=== PATIENT | female | born 2005 | race Caucasian/White ===

== ENCOUNTER 2023-01-10 15:19 | Emergency (ER) | payer MEDICAID ==
[~2023-01-10] VITALS: Ht 170.2 cm; Wt 100.0 kg
[2023-01-10 16:26] VITALS: BP 132/94
== END 2023-01-11 02:37 | disposition left against medical advice (07) ==
LOC: EDBD 15:19 → ER 15:19
DX: T78.49XA Other allergy, initial encounter (principal); R94.31 Abnormal electrocardiogram [ECG] [EKG]; Z53.21 Procedure and treatment not carried out due to patient leaving prior to being seen by health care provider; X58.XXXA Exposure to other specified factors, initial encounter
CPT/HCPCS: 93005

== ENCOUNTER 2023-08-21 00:29 | Emergency (ER) | payer MEDICAID ==
[~2023-08-21] VITALS: Ht 175.3 cm; Wt 97.7 kg
[2023-08-21 01:28] VITALS: BP 118/72; PULSE 74; RESP 18; TEMP 98; O2SAT 99
[2023-08-21] MEDS ORDERED: AMOX875T4 PO (01:59)
== END 2023-08-21 02:06 | disposition home or self-care (01) ==
LOC: ER 00:29
DX: S71.152A Open bite, left thigh, initial encounter (principal); S80.812A Abrasion, left lower leg, initial encounter; W55.01XA Bitten by cat, initial encounter; Y93.89 Activity, other specified; Y92.89 Other specified places as the place of occurrence of the external cause; Y99.8 Other external cause status

== ENCOUNTER 2023-12-23 03:53 | Emergency (ER) | payer MEDICAID ==
[~2023-12-23] VITALS: Ht 177.8 cm; Wt 109.0 kg
[~2023-12-23 03:53] MED LIST: AMOX875T4 PO
[2023-12-23 04:11] VITALS: BP 122/83; PULSE 112; RESP 18; TEMP 99; O2SAT 98
[2023-12-23 04:32] LABS: Urine Epithelial Cast None Seen /hpf (<5); Urine WBC None Seen /hpf (0 - 5)
[2023-12-23] MEDS ORDERED: MAALOX PLUS or MAALOX 30 ML PO ONE (04:45)
[2023-12-23 04:49] LABS: Urine Amorphous Crystal MOD /hpf (None Seen); Urine Bacteria NONE SEEN /hpf (None Seen); Urine Blood Negative /uL (Negative); Urine Clarity CLOUDY (Clear); Urine Color Yellow (Yellow); Urine Mucus FEW (None Seen); Urine Protein, UAD TRACE (Negative); Urine Specific Gravity 1.031 (1.001-1.035); Urine Urobilinogen Normal (Negative); Urine pH 5.5 (5.0-8.0)
[2023-12-23] MEDS ORDERED: OMEP-434 PO (04:49)
[2023-12-23 04:52] LABS: Basophils # (auto) 0 10 ^3/uL (0-0.2); Eosinophils # (auto) 0.3 10 ^3/uL (0-0.8); Lymphocytes # (auto) 0.6 10 ^3/uL (0.4-5.4)
[2023-12-23 04:55] LABS: Basophils % (auto) 0.4 % (0.0-2.0); Eosinophils % (auto) 4.1 % (0.0-7.0); Hematocrit 42.3 % (36.0-46.0); Hemoglobin 13.5 g/dL (12.2-16.2); Mean Corpuscular Hemoglobin 25.7 pg (28.0-32.0); Mean Corpuscular Hgb Conc. 31.9 g/dL (32.0-36.0); Mean Corpuscular Volume 80.6 fL (80.0-100.0); Monocytes # (auto) 0.5 10 ^3/uL (0-1.3); Monocytes % (auto) 6.1 % (0.0-12.0); Neutrophils # (auto) 6.1 10 ^3/uL (1.6-8.6); Neutrophils % (auto) 81.4 % (37.0-80.0); Red Blood Cells 5.25 10^6/uL (4.0-5.20); Red Cell Distribution Width 14.8 % (11.8-14.3); White Blood Cell 7.5 10^3/uL (4.4-10.8)
[2023-12-23 05:07] LABS: Alanine Aminotransferase 10 U/L (7-40); Albumin 4.8 g/dL (3.2-4.8); Alkaline Phosphatase 65 U/L (46-116); Anion Gap 7 (5-15); Aspartate Aminotransferase 12 U/L (13-40); BUN/Creatinine Ratio 8.9 (10.0-20.0); Bilirubin, Total 1.6 mg/dL (0.2-1.0); Blood Urea Nitrogen 8 mg/dL (9-23); Calcium 9.5 mg/dL (8.7-10.4); Carbon Dioxide 25 mmol/L (20-30); Chloride 108 mmol/L (98-107); Glucose 111 mg/dL (74-106); Lipase 30 U/L (12-53); Potassium 4.1 mmol/L (3.5-5.1); Sodium 140 mmol/L (136-145); Total Protein 8.6 g/dL (5.7-8.2)
[2023-12-23] MEDS ORDERED: DONNATAL 5ml ORAL Elix (BELLADONNA ALK-PHENOBARB) PO ONE (05:15)
[2023-12-23] MEDS ORDERED: LIDOCAINE VISCOUS 2% 15ML UD PO ONE (05:15)
[2023-12-23] MEDS ORDERED: CIPR500T4 PO (05:22)
[2023-12-23] MEDS ORDERED: ZOFR4T PO (05:22)
== END 2023-12-23 05:34 | disposition home or self-care (01) ==
LOC: ER 03:53
DX: K52.9 Noninfective gastroenteritis and colitis, unspecified (principal); K29.70 Gastritis, unspecified, without bleeding; K21.9 Gastro-esophageal reflux disease without esophagitis; Z79.2 Long term (current) use of antibiotics; Z79.899 Other long term (current) drug therapy; Z91.018 Allergy to other foods
CPT/HCPCS: 36415; 80053; 81001; 81025; 83690; 85025

== ENCOUNTER 2025-03-11 02:03 | Emergency (ER) | payer MEDICAID ==
[~2025-03-11] VITALS: Ht 177.8 cm; Wt 108.9 kg
[~2025-03-11 02:03] MED LIST changes: +CIPR500T4 PO; +OMEP-434 PO; +ZOFR4T PO
--- NOTE | 2025-03-11 02:07 | ED.PDOC ---
Back pain HPI HPI Comments 19-YEAR-OLD FEMALE PRESENTS TO THE ED WITH LOWER BACK PAIN. 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 SHE STATES SHE WAS GIVEN AN INJECTION IN THE MUSCLE FOR PAIN REPORTS NO IMAGING AND THEN SHE WAS DISCHARGED. SHE STATES OVER THE PAST 24 HOURS THE PAIN HAS INCREASED ACROSS LOW MID BACK NONRADIATING DOWN THE LEGS OR INTO THE GLUTES STATES PAIN IS 9/10 SHARP IN NATURE. PATIENT DENIES SADDLE ANESTHESIA, LOSS OF BOWEL BLADDER CONTROL, URINARY SYMPTOMS, NUMBNESS OR WEAKNESS. Time Seen by MD: 02:05 Reviewed Notes: Nurses Notes, Medications, Allergies Allergies: Uncoded Allergies: WALNUTS (Allergy, Unknown, 01/10/23) Home Meds Active Scripts Methylprednisolone (Medrol Dosepak) 4 Mg Renaldo, 4 MG PO UD for 6 Days, #21 TAB UAD Prov:MAGDIEL MOLINA 03/11/25 Tizanidine Hydrochloride (Tizanidine Hcl) 4 Mg Tab, 4 MG PO HS PRN for 4 Days, #4 TAB Prov:MAGDIEL MOLINA 03/11/25 Ciprofloxacin Hcl (Ciprofloxacin Hcl) 500 Mg Tab, 1 TAB PO BID for 7 Days, #14 TAB 0 Refills Prov:NATALY ORDONEZ 12/23/23 Ondansetron Odt 4MG Tab (ZOFRAN PO) 4 Mg Tb, 4 MG PO Q8HP, #14 TAB 0 Refills ODT TAB-DISSOLVE IN MOUTH, THEN SWALLOW Prov:NATALY ORDONEZ 12/23/23 Omeprazole Magnesium (Omeprazole) 20 Mg Tab, 20 MG PO DAILY, #30 TAB 0 Refills Prov:NATALY ORDONEZ 12/23/23 Amoxicillin & Pot Clavulanate (Amoxicillin/Potassium Cla) 875 Mg Tab, 1 TAB PO BID for 10 Days, #20 TAB 0 Refills Prov:JARRETT BRADSHAW 08/21/23 Information Source: Patient Past Medical History PAST MEDICAL HISTORY: GERD Surgical History: Denies all surgeries SOCIAL MEDIA COMMUNITY MANAGER History: No Pertinent SOCIAL MEDIA COMMUNITY MANAGER History Family History Family History: Unknown Social History Smoker: Non-Smoker Alcohol: Denies ETOH Use Drugs: Denies Drug Use Lives In: Home Constitutional: denies: chills, diaphoresis, fatigue, fever, malaise, sweats, weakness, others EENTM: denies: blurred vision, double vision, ear bleeding, ear discharge, ear drainage, ear pain, ear ringing, eye pain, eye redness, hearing loss, mouth pain, mouth swelling, nasal discharge, nose bleeding, nose congestion, nose pain, photophobia, tearing, throat pain, throat swelling, voice changes, others Respiratory: denies: cough, hemoptysis, orthopnea, SOB at rest, shortness of breath, SOB with excertion, stridor, wheezing, others Cardiovascular: denies: chest pain, dizzy spells, diaphoresis, Dyspnea on exertion, edema, irregular heart beat, left arm pain, lightheadedness, palpita tions, PND, syncope, others Gastrointestinal: denies: abdomen distended, abdominal pain, blood streaked uri wels, constipated, diarrhea, dysphagia, difficulty swallowing, hematemesis, melena, nausea, poor appetite, poor fluid intake, rectal bleeding, rectal pain, vomiting, others Genitourinary: denies: abnormal vagina bleeding, burning, dyspareunia, dysuria, flank pain, frequency, hematuria, incontinence, pain, , vagina discharge, urgency, others Neurological: denies: dizziness, fainting, headache, left sided numbness, left sided weakness, numbness, paresthesia, pre-existing deficit, right sided numbness, right sided weakness, seizure, speech problems, tingling, tremors, weakness, others Musculoskeletal: reports: back pain; denies: gout, joint pain, joint swelling, muscle pain, muscle stiffness, neck pain, others Integumetry: denies: bruises, change in color, change in hair/nails, dryness, laceration, lesions, lumps, rash, wounds, others Allergic/Immunocompromised: denies: Difficulty Healing, Frequent Infections, Hives, Itching, others Hematologic/Lymphatic: denies: anemia, blood clots, easy bleeding, easy bruising, swollen glands, others Endocrine: denies: excessive hunger, excessive sweating, excessive thirst, excessive urination, flushing, intolerance to cold, intolerance to heat, unexplained weight gain, unexplained weight loss, others Psychiatric: denies: anxiety, bipolar disorder, depression, hopeless, panic d isorder, schizophrenia, sleepless, suicidal, others Physical Exam General Appearance: No Apparent Distress, Normal HEENT: Pharynx Normal Neck: Full Range of Motion, Non-Tender Respiratory: Lungs Clear, No Respiratory Distress, Normal Breath Sounds Cardiovascular: No Edema, No JVD, No Murmur, No Gallop, Normal Peripheral Pulses, Regular Rate/Rhythm Breast Exam: Deferred Gastrointestinal: No Organomegaly, Non Tender, No Pulsatile Mass, Normal Bowel Sounds, Soft Genitalia: Deferred Pelvic: Deferred Rectal: Deferred Extremities: Normal capillary refill, Normal inspection, Normal range of motion, Non-tender, No pedal edema Musculoskeletal : Location: Bilateral Extremity Location: Back (MODERATE TENDERNESS PALPATED OVER L1 THROUGH L5 PARASPINAL MUSCLES BILATERAL NO NOTED CREPITUS OR STEP-OFFS. NEGATIVE STRAIGHT LEG RAISE BILATERAL. STRENGTH SENSORY MOTION INTACT. POSITIVE PEDAL PULSES.) Apperance: Normal Neurologic: Alert, learning center coordinator II-XII nml as Tested, No Motor Deficits, Normal Affect, Normal Mood, No Sensory Deficits Cerebellar Function: Normal Reflexes: Normal Skin: Dry, Normal Color, Warm Lymphatic: No Adenopathy Was a procedure done? Was a procedure done?: No Back Pain Differential Dx Differential Diagnosis: Fracture, Musculoskeletal Pain, Strain X-Ray, Labs, Meds, VS Vital Signs Date Time Temp Pulse Resp B/P (MAP) Pulse Ox O2 Delivery O2 Flow Rate FiO2 03/11/25 03:01 98.5 72 20 118/72 (87) 99 98.5 03/11/25 03:01 72 20 99 Room Air 03/11/25 02:09 98.5 94 24 137/95 (109) 100 98.5 Current Medications Medications (Trade) Dose Ordered Sig/Fredi Route Start Time Stop Time Status Last Admin Ketorolac Tromethamine (Toradol Injection) 60 mg ONCE ONCE IM 03/11/25 02:15 03/11/25 02:16 DC 03/11/25 02:45 Dexamethasone Sodium Phosphate (Decadron Injection) 10 mg ONCE ONCE IM 03/11/25 02:15 03/11/25 02:16 DC 03/11/25 02:45 X-Ray, Labs, Meds, VS Comment LUMBAR SPINE X-RAY SHOWS NO ACUTE FRACTURES OSSEOUS LESIONS OR SUBLUXATIONS. LIKELY LUMBAR STRAIN. SCRIPT MEDROL DOSEPAK AND TIZANIDINE ADVISED TO TAKE MEDICATIONS PRESCRIBED SIDE EFFECTS DISCUSSED. ALTERNATE BETWEEN ICE AND HEAT. FOLLOW UP WITH YOUR PCP IN 1-2 DAYS SOONER NECESSARY FOR RE- EVALUATION. ER RETURN PRECAUTIONS GIVEN PATIENT INDICATES UNDERSTANDING AND AGREES WITH DISCHARGE PLAN OF CARE. Time of 1ST Reevaluation: 02:07 Reevaluation 1ST: Unchanged Time of 2ND Reevaluation: 03:03 Reevaluation 2ND: Improved Patient Education/Counseling: Diagnosis, Treatment, Prognosis, Need For Follow Up Family Education/Counseling: No Family Present Departure 1 Departure Time of Disposition: 03:04 Impression: Primary Impression: Lumbar sprain Qualified Codes: S33.5XXA - Sprain of ligaments of lumbar spine, initial encounter Disposition: HOME / SELF CARE / HOMELESS Condition: Stable e-Prescriptions Methylprednisolone (Medrol Dosepak) 4 Mg Renaldo 4 MG PO UD for 6 Days, #21 TAB UAD Prov: MAGDIEL MOLINA 03/11/25 Tizanidine Hydrochloride (Tizanidine Hcl) 4 Mg Tab 4 MG PO HS PRN for 4 Days, #4 TAB Prov: MAGDIEL MOLINA 03/11/25 Discharged With: Self Critical Care Note Critical Care Time?: No Stability Stability form required: MAGDIEL Fitch Mar 11, 2025 02:07
--- NOTE | 2025-03-11 02:40 | DVH ---
INDICATION: LOW MID BACK PAIN COMPARISON: None TECHNIQUE: 2 views of the lumbar spine were obtained. FINDINGS: The lumbar vertebral alignment is normal. The intervertebral disc spaces are well-maintained. No significant facet arthropathy is noted. No acute fracture, vertebral compression deformity or aggressive osseous lesions. The paravertebral soft tissues are grossly unremarkable. IMPRESSION: 1. No acute fracture.
[2025-03-11] MEDS: DexAMETHasone SOD PHOS 10MG/1ML VIAL INJ IM ONE (02:45)
[2025-03-11] MEDS: KETOROLAC TROMETH 60MG/2ML VIAL IM ONE (02:45)
[2025-03-11 03:01] VITALS: BP 118/72; PULSE 72; RESP 20; TEMP 98.5; O2SAT 99
[2025-03-11] MEDS ORDERED: TIZA-142 PO (03:05)
[2025-03-11] MEDS ORDERED: METH4PAK PO (03:05)
== END 2025-03-11 03:09 | disposition home or self-care (01) ==
LOC: ER 02:03
DX: S33.5XXA Sprain of ligaments of lumbar spine, initial encounter (principal); Z79.899 Other long term (current) drug therapy; X58.XXXA Exposure to other specified factors, initial encounter; Y93.89 Activity, other specified; Y92.89 Other specified places as the place of occurrence of the external cause; Y99.8 Other external cause status
CPT/HCPCS: 72100; 96372; 99284; J1100; J1885

== ENCOUNTER 2025-06-07 17:20 | Emergency (ER) | payer MEDICAID ==
[~2025-06-07] VITALS: Ht 177.8 cm; Wt 112.5 kg
[2025-06-07 17:25] VITALS: BP 114/79; RESP 16; TEMP 98; O2SAT 96
[2025-06-07 17:26] VITALS: PULSE 91
[2025-06-07] MEDS ORDERED: DICYCLOMINE HCL (10MG/ML) 2 ML AMPULE IM ONE (17:45)
[2025-06-07] MEDS ORDERED: LIDOCAINE VISCOUS 2% 15ML UD PO ONE (17:45)
[2025-06-07] MEDS ORDERED: DONNATAL 5ml ORAL Elix (BELLADONNA ALK-PHENOBARB) PO ONE (17:45)
[2025-06-07] MEDS ORDERED: MAALOX PLUS or MAALOX 30 ML PO ONE (17:45)
[2025-06-07] MEDS ORDERED: ONDANSETRON ODT 4 MG TAB PO ONE (17:45)
[2025-06-07 17:52] LABS: Hematocrit 39.9 % (36.0-46.0); Hemoglobin 13.0 g/dL (12.2-16.2); Mean Corpuscular Hemoglobin 25.2 pg (28.0-32.0); Mean Corpuscular Volume 77.6 fL (80.0-100.0); Nucleated Red Blood Cells % 0.1 %
[2025-06-07 18:14] LABS: Albumin 3.9 g/dL (3.2-4.8); Alkaline Phosphatase 50 U/L (46-116); Anion Gap 7 (5-15); BUN/Creatinine Ratio 13.4 (10.0-20.0); Blood Urea Nitrogen 11 mg/dL (9-23); Calcium 8.8 mg/dL (8.7-10.4); Carbon Dioxide 25 mmol/L (20-31); Glucose 98 mg/dL (74-106); Lipase 23 U/L (12-53); Potassium 4.3 mmol/L (3.5-5.1); Sodium 142 mmol/L (136-145); Total Protein 6.1 g/dL (5.7-8.2)
[2025-06-07 18:15] LABS: Bilirubin, Total 0.7 mg/dL (0.2-1.0)
[2025-06-07 18:17] LABS: Alanine Aminotransferase 9 U/L (7-40); Chloride 110 mmol/L (98-107)
[2025-06-07 18:23] LABS: Urine Protein, UAD TRACE (Negative)
--- NOTE | 2025-06-07 18:42 | DVH ---
CHEST RADIOGRAPH Indication: cp Technique: Single frontal view of the chest was obtained Comparison: None FINDINGS: Lines and Tubes: None Lungs: No focal consolidation. Pleura: No effusion. No pneumothorax. Cardiomediastinal contours: Unremarkable Bones: No acute osseous abnormality. IMPRESSION: 1. No acute cardiopulmonary disease.
--- NOTE | 2025-06-07 18:54 | ECG ---
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
--- NOTE | 2025-06-07 20:30 | ED.PDOC ---
History of Present Illness HPI Comments 19-year-old female with a history of asthma brought in by family complaining of lower chest and epigastric pain for the past month intermittently, worse over the past 4 days. Patient states she had onset today of the pain while lying in bed, described as heaviness and tightness, retrosternal, associated with shortness of breath and 7/10 in severity. Patient also reports associated nausea but no vomiting. Denies fever, diarrhea, constipation or dysuria. Chief Complaint: Chest Pain Time Seen by MD: 17:22 Allergies: Coded Allergies: No Known Drug Allergy (Verified Allergy, Unknown, 06/07/25) Uncoded Allergies: WALNUTS (Allergy, Unknown, 01/10/23) Home Meds Active Scripts Ciprofloxacin Hcl (Ciprofloxacin Hcl) 500 Mg Tab, 1 TAB PO BID for 7 Days, #14 TAB 0 Refills Prov:NATALY ORDONEZ 12/23/23 Ondansetron Odt 4MG Tab (ZOFRAN PO) 4 Mg Tb, 4 MG PO Q8HP, #14 TAB 0 Refills ODT TAB-DISSOLVE IN MOUTH, THEN SWALLOW Prov:NATALY ORDONEZ 12/23/23 Omeprazole Magnesium (Omeprazole) 20 Mg Tab, 20 MG PO DAILY, #30 TAB 0 Refills Prov:NATALY ORDONEZ 12/23/23 Amoxicillin & Pot Clavulanate (Amoxicillin/Potassium Cla) 875 Mg Tab, 1 TAB PO B ID for 10 Days, #20 TAB 0 Refills Prov:JARRETT BRADSHAW 08/21/23 Mode of Arrival: Ambulatory Past Medical History PAST MEDICAL HISTORY: Asthma, GERD Surgical History: Denies all surgeries PHLEBOTOMIST LAB ASSISTANT History: No Pertinent PHLEBOTOMIST LAB ASSISTANT History Family History Family History: Reviewed,noncontributory to illness Social History Smoker: Non-Smoker Alcohol: Denies ETOH Use Drugs: Denies Drug Use Lives In: Home All Other Systems: Reviewed and Negative (Comprehensive systems review obtained and negative except for what is stated in the HPI.) Physical Exam General Appearance: Mild Distress, Obese HEENT: Other (Pupils and face symmetric. Moist mucous membranes.) Neck: Full Range of Motion, Normal Inspection Respiratory: Lungs Clear, No Accessory Muscle Use, No Respiratory Distress, Normal Breath Sounds, Other (Palpation of the lower sternal area reproduces the pain) Cardiovascular: No Edema, No JVD, Regular Rate/Rhythm Breast Exam: Deferred Gastrointestinal: Non Tender, Soft Genitalia: Deferred Pelvic: Deferred Rectal: Deferred Extremities: Normal inspection, Normal range of motion, Non-tender, No pedal edema Neurologic: Alert (Oriented x4), Normal Affect, Other (Anxious. Ambulatory.) Cerebellar Function: NOT DONE Reflexes: NOT DONE Skin: Dry, Normal Color, Warm Lymphatic: NOT DONE Was a procedure done? Was a procedure done?: No EKG EKG : Comments Sinus rhythm, rate 91, normal intervals, normal axis, normal QRS, no ST/T changes. Differential Dx Considerations may include: Acid reflux, esophagitis, esophageal spasm, gastritis, enteritis, ACS, AK, arrhythmia, among others X-Ray, Labs, Meds, VS Vital Signs Date Time Temp Pulse Resp B/P (MAP) Pulse Ox O2 Delivery O2 Flow Rate FiO2 06/07/25 17:26 91 06/07/25 17: 98.0 92 16 114/79 (91) 96 98.0 Lab Test 06/07/25 19:03 06/07/25 17:39 06/07/25 15:15 Range/Units Troponin I High Sensitivity < 3 L < 3 L </=34 ng/L White Blood Count 8.7 4.4-10.8 10^3/uL Red Blood Count 5.14 4.0-5.20 10^6/uL Hemoglobin 13.0 12.2-16.2 g/dL Hematocrit 39.9 36.0-46.0 % Mean Corpuscular Volume 77.6 L 80.0-100.0 fL Mean Corpuscular Hemoglobin 25.2 L 28.0-32.0 pg Mean Corpuscular Hemoglobin Concent 32.5 32.0-36.0 g/dL Red Cell Distribution Width 15.2 H 11.8-14.3 % Platelet Count 336 140-450 10^3/uL Mean Platelet Volume 8.5 6.9-10.8 fL Neutrophils (%) (Auto) 68.4 37.0-80.0 % Lymphocytes (%) (Auto) 21.5 10.0-50.0 % Monocytes (%) (Auto) 5.3 0.0-12.0 % Eosinophils (%) (Auto) 4.3 0.0-7.0 % Basophils (%) (Auto) 0.5 0.0-2.0 % Neutrophils # (Auto) 6.0 1.6-8.6 10 ^3/uL Lymphocytes # (Auto) 1.9 0.4-5.4 10 ^3/uL Monocytes # (Auto) 0.5 0-1.3 10 ^3/uL Eosinophils # (Auto) 0.4 0-0.8 10 ^3/uL Basophils # (Auto) 0 0-0.2 10 ^3/uL Nucleated Red Blood Cells 0.1 % Sodium Level 142 136-145 mmol/L Potassium Level 4.3 3.5-5.1 mmol/L Chloride Level 110 H 98-107 mmol/L Carbon Dioxide Level 25 20-31 mmol/L Anion Gap 7 5-15 Blood Urea Nitrogen 11 9-23 mg/dL Creatinine 0.82 0.550-1.02 mg/dL Glomerular Filtration Rate Calc 104 >90 mL/min BUN/Creatinine Ratio 13.4 10.0-20.0 Serum Glucose 98 74-106 mg/dL Calcium Level 8.8 8.7-10.4 mg/dL Total Bilirubin 0.7 0.2-1.0 mg/dL Aspartate Amino Transferase (AST) 16 13-40 U/L Alanine Aminotransferase (ALT) 9 7-40 U/L Alkaline Phosphatase 50 46-116 U/L Total Protein 6.1 5.7-8.2 g/dL Albumin 3.9 3.2-4.8 g/dL Lipase 23 12-53 U/L Urine Color Yellow Yellow Urine Clarity Turbid H Clear Urine pH 5.5 5.0-9.0 Urine Specific [place] 1.035 1.001-1.035 Urine Protein Trace H Negative Urine Ketones Trace Negative Urine Blood 2+ H Negative /uL Urine Nitrite Negative Negative Urine Bilirubin Negative Negative Urine Urobilinogen Normal Negative mg/dL Urine Leukocyte Esterase Negative Negative /uL Urine RBC 3 0 - 4 /hpf Urine Microscopic WBC 2 0-5 /HPF Urine Squamous Epithelial Cells Mod <5 /hpf Urine Bacteria Few H None Seen /hpf Urine Mucus Few None Seen Urine Glucose Normal Normal mg/dL Urine Test Negative Negative PROCEDURE(s): CXRP - CHEST PORTABLE REASON: cp ORDER NUMBER(s): [id number], ACCESSION NUMBER(s): [id number] CHEST RADIOGRAPH Indication: cp Technique: Single frontal view of the chest was obtained Comparison: None FINDINGS: Lines and Tubes: None Lungs: No focal consolidation. Pleura: No effusion. No pneumothorax. Cardiomediastinal contours: Unremarkable Bones: No acute osseous abnormality. IMPRESSION: 1. No acute cardiopulmonary disease. X-Ray, Labs, Meds, VS Comment 19-year-old female with a history of asthma and GERD complaining of retrosternal chest pain Vitals unremarkable Exam remarkable for reproducible pain with palpation of the lower central chest area Rhythm strip independently interpreted by me: Sinus rhythm, rate 91, no ectopy. Chest x-ray unremarkable CBC, CMP, lipase, UA, BNP and 2 serial troponins unremarkable for any abnormality of acute significance The following was ordered for the patient: Viscous lidocaine 10 mL, 10 mL, Maalox 30 mL p.o., Bentyl 20 mg IM, Zofran ODT 8 mg p.o. I attempted to re-evaluate the patient, however there was no answer after calling several times. It was assumed that the patient had eloped from the ED. Time of 1ST Reevaluation: 20:00 Reevaluation 1ST: N/A Patient Education/Counseling: Treatment, Need For Follow Up Family Education/Counseling: No Family Present SEPSIS Sepsis Screen Date sepsis recognized/suspect: Jun 07, 2025 Time Sepsis recognized/suspect: 1724 Recent Procedure: No On Antibiotic Therapy: No Respiratory Rate >20: No Heart Rate >90: No Temp<36 C (96.8 F) or >38.3 C: No SBP <90 or MAP <65 mmHG: No New Acute Mental Status Change: No Is the patient on CPAP, BIPAP,: No Physician Orders Electrocardigram (06/07/25 17:22) Chest Portable (06/07/25 17:33) Vital Signs Date Time Temp Pulse Resp B/P (MAP) Pulse Ox O2 Delivery O2 Flow Rate FiO2 06/07/25 17:26 91 06/07/25 17:25 98.0 92 16 114/79 (91) 96 98.0 Laboratory Tests Test 06/07/25 17:39 White Blood Count 8.7 10^3/uL (4.4-10.8) Departure 1 Departure Time of Disposition: 20:00 Impression: Primary Impression: Chest pain with low risk for cardiac etiology Disposition: 07 LEFT AWOL/ELOPED Condition: Fair Critical Care Note Critical Care Time?: No Stability Stability form required: No Heart Score Heart Score: Heart Score Response (Comments) Value History Slightly Suspicious 0 EKG Normal 0 Age <45 0 Risk Factors No known risk factors 0 Troponin Normal limit 0 Total 0 SHAYY VALLES MD Jun 07, 2025 20:30
== END 2025-06-07 21:39 | disposition left against medical advice (07) ==
LOC: ER 17:20
DX: R07.89 Other chest pain (principal); J45.909 Unspecified asthma, uncomplicated; K21.9 Gastro-esophageal reflux disease without esophagitis; Z79.899 Other long term (current) drug therapy
CPT/HCPCS: 36415; 71045; 80053; 81001; 81025; 83690; 84484; 85025; 93005